=== PATIENT | male | born 1995 | race Hispanic/Latino ===

== ENCOUNTER 2017-11-03 11:56 | Emergency (ER) | payer BC ==
[~2017-11-03 11:56] MED LIST: SULF1TAB42 PO; VICOT PO
[2017-11-03] MEDS ORDERED: KETOROLAC TROMETHAMINE 30MG/ML ONE (12:18)
== END 2017-11-03 14:25 | disposition home or self-care (01) ==
LOC: EDH 11:56
DX: K40.90 Unilateral inguinal hernia, without obstruction or gangrene, not specified as recurrent (principal); Z72.0 Tobacco use
CPT/HCPCS: 96374; 99284; J1885

== ENCOUNTER 2018-10-27 09:48 | Emergency (ER) | payer BC ==
[2018-10-27] MEDS ORDERED: ASPIRIN 81MG TAB.CHEW ONE (10:14)
[2018-10-27 10:19] LABS: BASOPHILS % (AUTO) 0.5 % (0.0-5.0); EOSINOPHILS % (AUTO) 1.8 % (0.0-8.0); HEMATOCRIT 44.6 % (42-54); LYMPHOCYTES % (AUTO) 32.7 % (21.0-51.0); MEAN CORPUSCULAR HEMOGLOBIN 32.2 pg (27.0-33.0); MEAN CORPUSCULAR HGB CONC 34.2 g/dL (32.0-36.0); PLATELET COUNT (AUTO) 213 K/uL (130-400); RED BLOOD CELL COUNT(AUTO) 4.74 MIL/uL (4.50-6.20); RED CELL DISTRIBUTION WIDTH 13.6 % (11.0-15.5); WHITE BLOOD COUNT (AUTO) 7.7 K/uL (4.8-10.8)
[2018-10-27 10:32] LABS: INR 0.96 (0.85-1.15); PARTIAL THROMBOPLASTIN TIME 27.7 SEC (26.3-35.5); PROTHROMBIN TIME 10.1 SEC (9.6-11.6)
== END 2018-10-27 12:48 | disposition home or self-care (01) ==
LOC: EDH 09:48
DX: R07.89 Other chest pain (principal); Z72.0 Tobacco use; Z90.49 Acquired absence of other specified parts of digestive tract
CPT/HCPCS: 36415; 71045; 80048; 84484; 85025; 85610; 85730; 93005